=== PATIENT | male | born 1970 | race American Indian/Alaskan Native ===

== ENCOUNTER 2017-11-09 16:14 | Emergency (ER) | payer SELFPAY ==
--- NOTE | 2017-11-09 16:38 | ED PDOC ---
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 Patient [place] he [place] step, and fell down on the ground. Patient developed an acute right lateral ankle pain. On the contrary of triage note, patient denies back pain, or foot pain. Patient denies ESTRADA, diplopia, dysarthria, weakness, paresthesias, n/v, neck pain, skin abrasion, bruises, dizziness, syncope, sob, cp, abdominal pain, knee pain, hip pain, or hematuria. Time/Duration: Prior to Arrival Quality: Aching Context: Other (light rail station) Past Medical History - Provider Review Nursing Documentation Reviewed: Yes - Tetanus Immunization Tetanus Immunization: Unknown - Cardiac Hx Hyperlipemia: Yes Hx Hypertension: Yes - Psychiatric Hx Depression: No Hx Emotional Abuse: No Hx Physical Abuse: No Hx Substance Use: Yes - Suicidal Assessment Feels Threatened In Home Enviroment: No Family/Social History - Physician Review Nursing Documentation Reviewed: Yes Family/Social History: Other (noncontributory) Hx Alcohol Use: Yes Hx Substance Use: Yes Substance used: Marijuana - seldom Hx Substance Use Treatment: Yes Allergies/Home Meds Allergies/Adverse Reactions: Allergies mussels Allergy (Intermediate, Uncoded 11/09/17 16:51) VOMITING Review of Systems - Review of Systems Constitutional: Normal. absent: Fatigue, Weight Change, Fevers Eyes: Normal. absent: Vision Changes, Photophobia ENT: Normal Respiratory: Normal. absent: SOB, Cough Cardiovascular: Normal. absent: Chest Pain, Palpitations, Edema, Calf Pain, KHAN , Orthopnea, Syncope Gastrointestinal: Normal. absent: Abdominal Pain, Nausea, Vomiting Genitourinary Male: Normal. absent: Dysuria, Hematuria Musculoskeletal: Other (right lateral ankle pain). absent: Back Pain, Neck Pain Skin: Normal, Other (no abrasions). absent: Rash, Laceration Neurological: Normal Endocrine: Normal Hemo/Lymphatic: Normal Psychiatric: Normal. absent: Anxiety, Depression, Suicidal Ideation Physical Exam Vital Signs Temp Pulse Resp BP Pulse Ox 11/09/17 17:58 67 18 148/75 96 11/09/17 16:51 97.1 F L 65 18 152/81 H 96 Temperature: Afebrile Blood Pressure: Normal Pulse: Regular Respiratory Rate: Normal Appearance: Positive for: Well-Appearing, Non-Toxic, Comfortable Pain Distress: None Mental Status: Positive for: Alert and Oriented X 3 - Systems Exam Head: Present: Atraumatic, Normocephalic, Other (no raccoon sign. no tomlin sign. Scalp is intact. No tenderness, ecchymosis, or swelling. no abrsion visualized). No: Tenderness, Contusion, Swelling, Ecchymosis, Abrasion, Laceration Pupils: Present: PERRL, Other (no hyphema) Extroacular Muscles: Present: EOMI. No: Entrapment Conjunctiva: Present: Normal Ears: Present: Normal, NORMAL TM, Normal Canal, Other (no hemotympanum). No: Erythema, TM Bulging, Fluid, TM Perf Mouth: Present: Moist Mucous Membranes, Normal Lips, Normal Tounge, Normal Teeth , Other (no active bleeding). No: Drooling, Trismus Pharnyx: Present: Normal. No: ERYTHEMA, EXUDATE, TONSILS ENLARGED, Peritonsilar Swelling, Uvular Deviation, Muffled/Hoarse Voice, Strider, Soft Palate/Uvular Edema Nose (External): Present: Atraumatic. No: Abrasion, Contusion, Laceration Nose (Internal): Present: Normal Inspection, No Active Bleeding. No: Edematous , Septal Deviation, Septal Hematoma, Epistaxis Neck: Present: Normal Range of Motion, Lymphadenopathy, Trachea Midline, Other ( No paravertebral tenderness. No vertebral point tenderness. No vertebral step off. Patient has FROM of his neck). No: Meningeal Signs, MIDLINE TENDERNESS, Paraspinal Tenderness Respiratory/Chest: Present: Clear to Auscultation, Good Air Exchange. No: Respiratory Distress, Accessory Muscle Use, Wheezes, Decreased Breath Sounds, Rales, Retracting, Rhonchi, Tachypneic, Tender to Palpation Cardiovascular: Present: Regular Rate and Rhythm, Normal S1, S2. No: Murmurs Abdomen: No: Tenderness, Distention, Peritoneal Signs Back: Present: Normal Inspection. No: CVA Tenderness, Midline Tenderness Upper Extremity: Present: Normal Inspection, Normal ROM, NORMAL PULSES, Neurovascularly Intact, Capillary Refill < 2s. No: Cyanosis, Edema Lower Extremity: Present: Normal Inspection, NORMAL PULSES, Tenderness ((+) mild right lateral malleoulus tenderness. No swelling, abrasion, erythema, or ecchymosis. No deformity), Neurovascularly Intact, Capillary Refill < 2 s, Other (Salas test was negative. No posterior ankle tenderness. No calf tenderness). No: Edema, CALF TENDERNESS, Cyanosis, Marcy's Sign, Swelling, Erythema, Deformity, Temperature Abnormalties Neurological: Present: GCS=15, CN II-XII Intact, Speech Normal, Motor Func Grossly Intact, Normal Sensory Function, Normal Cerebellar Funct. No: Gait Normal (patient unable to put wt on right ankle due to pain. No knee or hip tenderness. No proximal fibula tenderness) Skin: Present: Warm, Dry, Normal Color. No: Rashes Psychiatric: Present: Alert, Oriented x 3, Normal Insight, Normal Concentration Medical Decision Making ED Course and Treatment: 11/09/17 16:45 Patient came c/o right ankle pain after a fall. physical exam was normal except for mild right lateral malleoulus tenderness. Neuro exam was unremarkable. Ankle x-rays and Toradol 15 mg IM were ordered. 11/09/17 17:47 Patient is requesting a CT Head because he hit his head. I reviewed the risk of using ionizing radiation from CT scan. He said he "does not care about the risk", and he "only came to ED to get the CT scan" 11/09/17 20:04 Re-evaluation. Patient feels better. Discussed results and plan with patient who expresses understanding. All questions answered and there is agreement with the plan to discharge home with instructions. Patient stable for discharge. Return if symptoms persist or worsen. Patient was recommended to f/u neurologist for further evaluation Patient was recommended to f/u neurologist and to get out-patient MRI of brain for further evaluation Re-evaluation Time: 20:08 Reassessment Condition: Re-examined, Improved - RAD Interpretation Narrative RAD Interpretations (Text): 11/09/17 20:04 CT Scan HEAD W/O CONTRAST Exam Date: 11/09/17 This imaging exam was performed at [facility] EXAM: CT Head Without Intravenous Contrast EXAM DATE/TIME: 11/09/2017 5:50 PM FINDINGS: Brain: There are several subtle foci of hypodensity within the cerebral white matter, nonspecific in a patient this age. Differential considerations include small vessel ischemic disease and demyelination. There is small hypodensity is identified inferior to the right basal ganglia, consistent with a dilated perivascular space. A small cavum septum pellucidum variant is visualized. The white-michael differentiation is preserved demonstrating no acute territorial type infarct. No acute intracranial hemorrhage is seen. Midline shift: There is no midline shift. Ventricles: No ventriculomegaly. Bones/joints: The calvarium demonstrates no evidence for a depressed fracture. Soft tissues: There is minimal soft tissue swelling of the posterior scalp. Sinuses: A small mucous retention cyst or polyp is visualized within the left maxillary sinus. Mastoid air cells: No mastoid effusion. IMPRESSION: 1. There is minimal soft tissue swelling of the posterior scalp. 2. No acute intracranial hemorrhage. 3. There are several subtle foci of hypodensity within the cerebral white matter, nonspecific in a patient this age. Differential considerations include small vessel ischemic disease and demyelination. This can be further evaluated with a nonemergent MRI. 4. Incidental/non-acute findings are described above. Radiology Orders: 11/09/17 16:51 ANKLE RIGHT 3 VIEWS ROUTINE [RAD] Stat 11/09/17 17:50 HEAD W/O CONTRAST [CT] Stat - Medication Orders Current Medication Orders: Discontinued Medications Ketorolac Tromethamine (Toradol) 30 mg IM STAT STA Stop: 11/09/17 16:53 Last Admin: 11/09/17 17:21 Dose: 30 mg MAR Pain Assessment Document 11/09/17 17:21 SS (Rec: 11/09/17 17:22 SS [id number]) Pain Reassessment Is this a pain reassessment? No Sleep Is patient sleeping during reassessment? No Presence of Pain Presence of Pain Yes Pain Scale Used Pain Scale Used Numeric Location Left, Right or Bilateral Right Upper or Lower Lower Pain Location Body Site Ankle Description Description Dull Pain Behavior Moaning Restlessness IM Administration Charges Document 11/09/17 17:21 SS (Rec: 11/09/17 17:22 SS [id number]) Injection Site MAR Injection Site Right Deltoid Charges for Administration # of IM Administrations 1 Disposition/Present on Arrival - Present on Arrival Any Indicators Present on Arrival: No History of DVT/PE: No History of Uncontrolled Diabetes: No Urinary Catheter: No History Surgical Site Infection Following: None - Disposition Have Diagnosis and Disposition been Completed?: Yes Diagnosis: Closed head injury, Right ankle strain, Abnormal head CT Disposition: HOME/ ROUTINE Disposition Time: 20:09 Patient Plan: Discharge Condition: IMPROVED Discharge Instructions (ExitCare): Closed Head Injury (DC), Ankle Sprain (DC) Additional Instructions: Call neurologist for further evaluation in 10-2 days. keep ankle elevated, ice , rest, crutches for at least 5 days. Remove kylee bandage at bedtime. Return to emergency if pain worsen. Prescriptions: Ibuprofen [Motrin] 600 mg PO Q8 PRN #20 tab PRN Reason: Pain, Severe (8-10) Referrals: Dilshad Rainey MD [Primary Care Provider] - Follow up with primary Candi Mack MD [Staff Provider] - Follow up with primary Forms: WORK NOTE
[2017-11-09 16:51] VITALS: BMI 35.2
[2017-11-09 16:52] VITALS: RESP 18; TEMP 97.1
--- NOTE | 2017-11-09 18:11 | RAD ---
PROCEDURE: Right Ankle Radiographs. HISTORY: PAIN S/P FALL COMPARISON: None FINDINGS: BONES: Plantar and Achilles Tendon insertion calcaneal spurs. JOINTS: Normal. No osteoarthritis. Ankle mortise maintained. Talar dome intact SOFT TISSUES: Normal. OTHER FINDINGS: None. IMPRESSION: No acute findings related to/accounting for the clinical presentation. Additional benign and/or incidental findings described above. Concordant results with the preliminary interpretation rendered by the emergency department physician procedure.
--- NOTE | 2017-11-09 19:47 | CT ---
EXAM: CT Head Without Intravenous Contrast EXAM DATE/TIME: 11/09/2017 5:50 PM CLINICAL HISTORY: The patient age is 47 years old and is male; Injury or trauma; Fall; Initial encounter; Abrasion; Head, generalized; Additional info: Head injury Facility exam id and description: Ct heads head w/o contrast TECHNIQUE: Axial computed tomography images of the head/brain without intravenous contrast. All CT scans at this facility use one or more dose reduction techniques, viz.: automated exposure control; ma/kV adjustment per patient size (including targeted exams where dose is matched to indication; i.e. head); or iterative reconstruction technique. Coronal and sagittal reformatted images were created and reviewed. COMPARISON: No relevant prior studies available. FINDINGS: Brain: There are several subtle foci of hypodensity within the cerebral white matter, nonspecific in a patient this age. Differential considerations include small vessel ischemic disease and demyelination. There is small hypodensity is identified inferior to the right basal ganglia, consistent with a dilated perivascular space. A small cavum septum pellucidum variant is visualized. The white-michael differentiation is preserved demonstrating no acute territorial type infarct. No acute intracranial hemorrhage is seen. Midline shift: There is no midline shift. Ventricles: No ventriculomegaly. Bones/joints: The calvarium demonstrates no evidence for a depressed fracture. Soft tissues: There is minimal soft tissue swelling of the posterior scalp. Sinuses: A small mucous retention cyst or polyp is visualized within the left maxillary sinus. Mastoid air cells: No mastoid effusion. IMPRESSION: 1. There is minimal soft tissue swelling of the posterior scalp. 2. No acute intracranial hemorrhage. 3. There are several subtle foci of hypodensity within the cerebral white matter, nonspecific in a patient this age. Differential considerations include small vessel ischemic disease and demyelination. This can be further evaluated with a nonemergent MRI. 4. Incidental/non-acute findings are described above.
[2017-11-09 20:29] VITALS: BP 148/78; PULSE 70
[2017-11-09 20:31] VITALS: O2SAT 99
== END 2017-11-09 20:29 | disposition home or self-care (01) ==
LOC: ED 16:14
DX: S09.90XA Unspecified injury of head, initial encounter (principal); S96.911A Strain of unspecified muscle and tendon at ankle and foot level, right foot, initial encounter; W10.9XXA Fall (on) (from) unspecified stairs and steps, initial encounter; Y92.522 Railway station as the place of occurrence of the external cause; R94.8 Abnormal results of function studies of other organs and systems
CPT/HCPCS: 70450; 73610; 96372; 99284; J1885